=== PATIENT | male | born 2000 | race Caucasian/White ===

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

== ENCOUNTER 2022-09-14 17:23 | Emergency (ER) | payer BC, SELFPAY ==
[2022-09-14 17:36] VITALS: BP 136/81; PULSE 65; RESP 16; TEMP 36.6; O2SAT 99
--- NOTE | 2022-09-14 17:39 | ED.HEATRA ---
HPI - Head Injury General Chief complaint: Head Injury Stated complaint: head wound Time Seen by Provider: 09/14/22 17:39 Source: patient Mode of arrival: ambulatory Limitations: no limitations History of Present Illness HPI Narrative: 22-year-old male presents with laceration to scalp. Patient reports that last night around 2:00 a.m. he was wrestling with a few of his friends and hit his head on the knob a of a cabinet. Patient reports that he was intoxicated at that time. Denies LOC. states wound was cleaned by his girlfriend and then later went to bed. Woke up later this afternoon and after looking at laceration felt that it may need sutures. Patient's tetanus is up-to-date. He is alert and talkative, ambulatory with steady gait. All systems reviewed and negative except as noted above. Related Data Allergies Allergy/AdvReac Type Severity Reaction Status Date / Time No Known Allergies Allergy Verified 09/14/22 17:36 Review of Systems Review of Systems: CONSTITUTIONAL: Denies fever, chills, or sweats. EYES: Denies visual changes, redness, or discharge. ENT: Denies rhinorrhea, congestion, sore throat, or otalgia. CARDIOVASCULAR: Denies chest pain, palpitations, or edema. RESPIRATORY: Denies cough or dyspnea. GASTROINTESTINAL: Denies abdominal pain, nausea, vomiting, or diarrhea. GENITOURINARY: Denies dysuria or hematuria. SKIN: Denies rash or itching. Reports scalp laceration MUSCULOSKELETAL: Denies back pain, joint pain, or myalgia. NEUROLOGIC: Denies headache, numbness, or weakness. PSYCHIATRIC: Denies anxiety or depression. All other systems reviewed are negative, except as documented in HPI. PMFSH Social History Social History Gender identity (if verbalized by the patient): Male Comments At time of signature, agree with nursing past medical, surgical, social and family history. There is no relevant family history pertinent to the presenting complaint. Exam Narrative: GENERAL: This is a well-nourished, well-developed patient, in no apparent distress. HEAD: normocephalic, atraumatic. 2 cm laceration to left side frontal aspect of scalp at hairline. EYES: PERRL. Sclera clear/white. Vision is grossly intact. Extraocular motions normal. EARS: External ears normal NOSE: External nose normal NECK: Neck supple, non-tender without lymphadenopathy, masses or thyromegaly. CARDIOVASCULAR: Regular rate and rhythm without murmurs, gallops, or rubs. RESPIRATORY: Clear to auscultation. Breath sounds equal bilaterally. No wheezes, rales, or rhonchi. SKIN: warm, Dry, intact with no suspicious lesions or rash, good texture and turgor. NEURO: awake, alert, and oriented to person, place and time. There were no obvious focal neurologic abnormalities. EXTREMITIES: No joint tenderness, effusion, or edema noted. Course Course Level of Care: Express Care Visit Vital Signs Vital signs: Vital Signs Temperature 36.6 C 09/14/22 17:36 Pulse Rate 65 09/14/22 17:36 Respiratory Rate 16 09/14/22 17:36 Blood Pressure 136/81 09/14/22 17:36 Pulse Oximetry 99 09/14/22 17:36 Oxygen Delivery Room Air 09/14/22 17:36 Temperature 36.6 C 09/14/22 17:36 Pulse Rate 65 09/14/22 17:36 Respiratory Rate 16 09/14/22 17:36 Blood Pressure 136/81 09/14/22 17:36 Pulse Oximetry 99 09/14/22 17:36 Oxygen Delivery Room Air 09/14/22 17:36 Reviewed Procedures Laceration Laceration 1: Date: 09/14/22 Time: 18:10 Site: scalp Side (If applicable): left Size (cm): 2 Description: irregular Depth: simple, single layer Local Anesthetic: lidocaine 1% Amount of anesthesia used (mL): 3 Pre-repair: wound explored and irrigated ====== Skin Level ====== Skin layer closed with: vicryl Size (cm): 5-0 Number of sutures: 7 Technique: simple, interrupted ====== Subcutaneous Layer ====== =
== END 2022-09-14 18:27 | disposition home or self-care (01) ==
PROVIDERS: Emergency Provider Nurse Practitioner Family
DX: S01.01XA Laceration without foreign body of scalp, initial encounter (principal); W22.8XXA Striking against or struck by other objects, initial encounter
CPT/HCPCS: 12001; 99213; G0463

== ENCOUNTER 2024-01-07 16:51 | Emergency (ER) | payer SELFPAY ==
--- NOTE | 2024-01-07 17:54 | ED_ITS ---
HPI - Wound/Laceration General Chief Complaint: Wound/Laceration Stated Complaint: thumb lac Time Seen by Provider: 01/07/24 17:08 History of Present Illness HPI narrative: 23-year-old male presents to emergency department for laceration to his right thumb that occurred prior to arrival. Patient states he accidentally cut his right thumb on a mandoline. He would urgent care sent to the ED for further evaluation and management. His Tdap is up-to-date. Related Data Allergies Allergy/AdvReac Type Severity Reaction Status Date / Time No Known Allergies Allergy Verified 09/14/22 17:36 Review of Systems Review of Systems: All systems reviewed & are unremarkable except as noted in HPI and below PMFSH Social History Social History Gender identity (if verbalized by the patient): Male Exam Narrative: GENERAL: Well-appearing, well-nourished, and in no acute distress. HEAD: Normocephalic, atraumatic. EYES: EOMI. ENT: Nares clear, no rhinorrhea or epistaxis. Mucous membranes moist. NECK: Supple. CHEST: Clear to auscultation. No respiratory distress. HEART: Regular rate and rhythm. No murmur heard. Normal peripheral pulses. EXTREMITIES: Normal range of motion. No edema. SKIN: R thumb with a 1cm x 0.5cm skin avulsion ti the distal radial aspect of the thumb. No nail involvement, no bone or foreign bodies visualized. There is active pulsating bleeding consistent with a small arterial bleed. Patient is full active passive range of motion, sensation intact. Cap refills less than 2. NEURO: No focal deficits. Alert and oriented x3 Course Vital Signs Vital signs: Vital Signs Temperature 98.3 F 01/07/24 18:20 Pulse Rate 64 01/07/24 18:20 Respiratory Rate 14 01/07/24 18:20 Blood Pressure 126/95 H 01/07/24 18:20 Pulse Oximetry 100 01/07/24 18:20 Temperature 98.3 F 01/07/24 18:20 Pulse Rate 64 01/07/24 18:20 Respiratory Rate 14 01/07/24 18:20 Blood Pressure 126/95 H 01/07/24 18:20 Pulse Oximetry 100 01/07/24 18:20 MDM - Wound/Laceration MDM Narrative Medical decision making narrative: 23-year-old male presents to the emergency department for a skin avulsion to his right thumb that occurred prior to arrival. Tdap is up-to-date. Vital stable. Exam is significant for a 1 cm x 0.5 cm skin avulsion to the distal phalanx on the radial side of the right thumb. There was pulsatile blood concerning for small arterial bleed. Finger tourniquet applied with successful hemostasis. Silver nitrate used and finger tourniquet removed with persistent successful hemostasis. Xeroform and pressure dressing applied and patient was started on Keflex prophylactically. Discussed wound care and dressing changes as well as strict ED return precautions. He is agreeable with the plan verbalized understanding. Discharged in stable condition. Discharge Plan Discharge Clinical Impression: Avulsion of skin Patient Disposition: Home, Self-Care Condition: Stable Instructions: Antibiotic Form, Skin Avulsion (ED) Additional Instructions: Your evaluated in the emergency department for a skin avulsion. We were able to bleeding with silver nitrate. Please keep the dressing on for 24 hours and then change dressings twice daily or earlier if the dressing becomes dirty or wet. Please take the antibiotics as directed to help prevent infection. Return to the emergency department if you develop rebleeding that is not controlled within 20 minutes, pulsatile bleeding, fever, surrounding redness, fever, pus like drainage or other concerning symptoms Prescriptions: New cephalexin 500 mg capsule 500 mg PO Q6H 5 Days Qty: 20 0RF No Action cephalexin 500 mg capsule 500 mg PO Q8H 7 Days Qty: 21 0RF Follow-up/Referrals: PHYSICIAN,DRYING AND WINDING SUPERVISOR [Primary Care Provider] -
[2024-01-07] MEDS: CEPHALEXIN 500 MG CAPSULE PO (18:14)
[2024-01-07 18:20] VITALS: BP 126/95; PULSE 64; RESP 14; TEMP 36.8; O2SAT 100
[2024-01-07 18:44] VITALS: BP 130/84; PULSE 70; RESP 16; TEMP 36.8; O2SAT 100
== END 2024-01-07 18:46 | disposition home or self-care (01) ==
LOC: ANHED 18:18
PROVIDERS: Emergency Provider Physician Assistant
DX: S61.001A Unspecified open wound of right thumb without damage to nail, initial encounter (principal); W26.8XXA Contact with other sharp object(s), not elsewhere classified, initial encounter
CPT/HCPCS: 11740; 99283; A9270

== ENCOUNTER 2025-03-06 04:02 | Emergency (ER) | payer OTHER, SELFPAY ==
[2025-03-06] VITALS (10 sets, daily range): BP systolic 116–146; BP diastolic 55–93; PULSE 73–115; RESP 20; TEMP 36.8; O2SAT 93–100
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
--- OUTSIDE RECORDS SUMMARY | 2025-03-06 04:05 | XMS_ITS | Patient Health Record ---
Author Organization [facility] Address [address] [place], [place] [id number] Care Team Providers Care Worm Raiser Name Role Phone Ted Funes Primary Care Provider Brandon Varela Unavailable [phone] Reason For Referral No Information Plan Of Treatment No Information Insurance Providers Payer Name Payer Address Payer Phone Subscriber Number Group Number Insured Name Patient Relationship to Insured Coverage Start Date Coverage End Date [facility] [address] [address] [place] [address] [phone] 21 Anushka Izaguirre Child - Insured has Financial Responsibility Medical (General) History Surgical History Surgery Date(Month/Year) BTTI
[2025-03-06] MEDS: SODIUM CHLORIDE 0.9% IV 1,000 ML 999 ML IV CONT (07:24)
[2025-03-06 07:45] LABS: Hematocrit 41.6 % (42.0-52.0); Hemoglobin 14.9 g/dL (14.0-18.0); Immature Granulocyte Percent A 0.5 % (0-0.5); Lymphocytes Absolute Auto 2.39 K/mm3 (0.9-3.2); Mean Corpuscular HGB Conc 35.8 g/dl (32-36); Mean Corpuscular Hemoglobin 31.0 pg (26-34); Mean Corpuscular Volume 86.5 fl (80-100); Nucleated Red Blood Cells Absolute Auto 0.000 K/mm3 (0.0-0.012); Nucleated Red Blood Cells Perc 0.0 % (0.0-0.2); Platelet Count Result 245 k/mm3 (150-375); Red Blood Count 4.81 M/mm3 (4.6-6.20); White Blood Count 15.5 K/mm3 (4.5-10.0)
[2025-03-06 07:56] LABS: INR 1.0; Prothrombin Time 13.7 Seconds (11.1-14.7)
[2025-03-06 07:58] LABS: Alanine Aminotransferase 31 U/L (6-50); Albumin Level 4.1 g/dL (3.5-5.1); Alkaline Phosphatase 65 U/L (38-126); Anion Gap 13 mmol/L (4-12); Aspartate Amino Transferase 62 U/L (17-59); Bilirubin,Total 0.7 mg/dL (0.2-1.3); Blood Urea Nitrogen 14 mg/dL (9-20); Calcium 8.2 mg/dL (8.4-10.2); Carbon Dioxide 17 mmol/L (22-30); Chloride 108 mmol/L (98-107); Estimated CRCL calculation 120 ml/min; Estimated Glomerular Filt Rate > 60; Glucose 64 mg/dL (65-110); Potassium 4.1 mmol/L (3.4-5.0); Sodium 138 mmol/L (137-145); Total Protein 6.4 g/dL (6.3-8.2)
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
== END 2025-03-06 11:49 | disposition home or self-care (01) ==
PROVIDERS: Emergency Provider Family Medicine
DX: S81.012A Laceration without foreign body, left knee, initial encounter (principal); S30.811A Abrasion of abdominal wall, initial encounter; R10.32 Left lower quadrant pain; T14.8XXA Other injury of unspecified body region, initial encounter; V49.40XA Driver injured in collision with unspecified motor vehicles in traffic accident, initial encounter
CPT/HCPCS: 12001; 36415; 71045; 71260; 74177; 80053; 82077; 85025; 85610; 96360; 99284; J2003; J7030; Q9967